=== PATIENT | male | born 1960 | race Caucasian/White ===

== ENCOUNTER 2016-08-27 13:29 | Emergency (ER) | payer OTHER ==
[~2016-08-27] VITALS: Ht 177.8 cm; Wt 77.0 kg
[~2016-08-27 13:29] MED LIST: BACT800T5 PO; BENZ1TAB PO; BUPR-175 PO; BUPR-86 PO; CEPH500T PO; DOXE100C4 PO; HALO100P IM; LURA1TAB PO; TAMS0.4C67 PO
[2016-08-27 13:31] VITALS: BP 132/93; PULSE 85; TEMP 97.8; O2SAT 100
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
[2016-08-27] MEDS ORDERED: traMADol HCL 50 MG TAB PO ONE (14:30)
[2016-08-27] MEDS ORDERED: TRAM50TA PO (14:37)
== END 2016-08-27 14:55 | disposition home or self-care (01) ==
LOC: NEPK 13:29
DX: S02.642A Fracture of ramus of left mandible, initial encounter for closed fracture (principal); Y04.2XXA Assault by strike against or bumped into by another person, initial encounter; Y93.55 Activity, bike riding; B19.20 Unspecified viral hepatitis C without hepatic coma; Z72.0 Tobacco use
CPT/HCPCS: 70486

== ENCOUNTER 2017-01-05 10:31 | Emergency (ER) | payer OTHER, MEDICAID ==
[~2017-01-05] VITALS: Ht 177.8 cm; Wt 77.0 kg
[~2017-01-05 10:31] MED LIST changes: -BACT800T5 PO; -BENZ1TAB PO; -BUPR-175 PO; -BUPR-86 PO; -CEPH500T PO; -DOXE100C4 PO; -HALO100P IM; -LURA1TAB PO; -TAMS0.4C67 PO; +TRAM50TA PO
[2017-01-05 10:32] VITALS: BP 136/81; PULSE 85; RESP 18; TEMP 98.3; O2SAT 100
[2017-01-05] MEDS ORDERED: BACT800T5 PO (10:48)
[2017-01-05] MEDS ORDERED: CEPH-460 PO (10:48)
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
== END 2017-01-05 11:13 | disposition home or self-care (01) ==
LOC: NEPK 10:31
DX: L02.413 Cutaneous abscess of right upper limb (principal); B95.62 Methicillin resistant Staphylococcus aureus infection as the cause of diseases classified elsewhere
CPT/HCPCS: 10060; 86403; 87070; 87186

== ENCOUNTER 2017-01-09 20:39 | Emergency (ER) | payer OTHER ==
[~2017-01-09] VITALS: Ht 177.8 cm; Wt 85.0 kg
[~2017-01-09 20:39] MED LIST changes: +BACT800T5 PO; +CEPH-460 PO
[2017-01-09] MEDS ORDERED: SODIUM CHLORIDE 0.9% FLUSH 10 ML FLUSH IV FLUSH PRN (21:00)
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
[2017-01-09 21:29] VITALS: BP 148/70; PULSE 84; RESP 16; TEMP 98.2; O2SAT 100
[2017-01-09 21:33] VITALS: O2SAT 100
--- NOTE | 2017-01-09 21:49 | RADRPT ---
EXAM DATE/TIME: 01/09/2017 21:13 [facility] COMPARISON: CT BRAIN W/O CONTRAST, December 16, 2014, 15:49. INDICATIONS : Trauma, fall. RADIATION DOSE: 36.39 CTDIvol (mGy) MEDICAL HISTORY : Hepatitis C. SURGICAL HISTORY : None. ENCOUNTER: Initial ACUITY: 1 day PAIN SCALE: 7/10 LOCATION: cranial TECHNIQUE: Multiple contiguous axial images were obtained of the head. Using automated exposure control and adj ustment of the mA and/or kV according to patient size, radiation dose was kept as low as reasonably a chievable to obtain optimal diagnostic quality images. DICOM format image data is available electro nically for review and comparison. FINDINGS: CEREBRUM: The ventricles are normal for age. No evidence of midline shift, mass lesion, hemorrhage or acute in farction. No extra-axial fluid collections are seen. POSTERIOR FOSSA: The cerebellum and brainstem are intact. The 4th ventricle is midline. The cerebellopontine angle i s unremarkable. EXTRACRANIAL: The visualized portion of the orbits is intact. Soft tissue swelling adjacent to the anterior right zygoma, lateral orbital wall, measuring up to 11 mm in thickness. SKULL: The calvaria is intact. No evidence of skull fracture. CONCLUSION: No acute findings in the brain. Kameron Guillory MD on January 09, 2017 at 21:46 Board Certified Radiologist. This report was verified electronically.
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
--- NOTE | 2017-01-09 22:08 | RADRPT ---
EXAM DATE/TIME: 01/09/2017 21:02 [facility] COMPARISON: CHEST SINGLE AP, December 16, 2014, 15:26. INDICATIONS : Shortness of breath. MEDICAL HISTORY : Hepatitis C. Seizures SURGICAL HISTORY : None. ENCOUNTER: Initial ACUITY: 1 day PAIN SCORE: 0/10 LOCATION: Bilateral chest FINDINGS: A single view of the chest demonstrates the lungs to be symmetrically aerated without evidence of mas s, infiltrate or effusion. The cardiomediastinal contours are unremarkable. Osseous structures are intact. CONCLUSION: The lungs are clear. Kameron Guillory MD on January 09, 2017 at 22:06 Board Certified Radiologist. This report was verified electronically.
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
[2017-01-10 03:00] VITALS: BP 131/72; PULSE 89; RESP 16; O2SAT 97
== END 2017-01-10 06:19 | disposition home or self-care (01) ==
LOC: NEPE 20:39
DX: S09.90XA Unspecified injury of head, initial encounter (principal); S01.81XA Laceration without foreign body of other part of head, initial encounter; R05 Cough; F10.920 Alcohol use, unspecified with intoxication, uncomplicated; E78.00 Pure hypercholesterolemia, unspecified; W01.198A Fall on same level from slipping, tripping and stumbling with subsequent striking against other object, initial encounter; Y93.01 Activity, walking, marching and hiking; Y92.59 Other trade areas as the place of occurrence of the external cause; Z72.0 Tobacco use
CPT/HCPCS: 70450; 70486; 71010; 72125; 99285

== ENCOUNTER 2017-02-18 08:28 | Emergency (ER) | payer OTHER ==
[~2017-02-18] VITALS: Ht 177.8 cm; Wt 78.0 kg
[2017-02-18 08:29] VITALS: BP 136/87; PULSE 99; RESP 13; TEMP 98.8; O2SAT 100
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
[2017-02-18] MEDS ORDERED: BACT800T5 PO (08:53)
[2017-02-18] MEDS ORDERED: MUPI2%T TOPICAL (08:54)
== END 2017-02-18 09:15 | disposition home or self-care (01) ==
LOC: NEPK 08:28
DX: S60.417A Abrasion of left little finger, initial encounter (principal); M19.90 Unspecified osteoarthritis, unspecified site; F31.9 Bipolar disorder, unspecified; E78.00 Pure hypercholesterolemia, unspecified; F20.9 Schizophrenia, unspecified; F17.200 Nicotine dependence, unspecified, uncomplicated; V18.4XXA Pedal cycle driver injured in noncollision transport accident in traffic accident, initial encounter; Z86.19 Personal history of other infectious and parasitic diseases; Z87.442 Personal history of urinary calculi
CPT/HCPCS: 99284

== ENCOUNTER 2017-07-01 09:01 | Emergency (ER) | payer OTHER ==
[~2017-07-01] VITALS: Ht 177.8 cm; Wt 75.0 kg
[~2017-07-01 09:01] MED LIST changes: -CEPH-460 PO; +MUPI2%T TOPICAL; -TRAM50TA PO
[2017-07-01 09:04] VITALS: BP 125/81; PULSE 110; RESP 20; TEMP 98.1; O2SAT 100
[2017-07-01] MEDS ORDERED: SODIUM CHLOR 0.9% 1000 ML INJ 1,000 ML IV ONE (10:15)
[2017-07-01] MEDS ORDERED: LEVOFLOXACIN 750 MG TAB PO ONE (10:15)
[2017-07-01] MEDS ORDERED: SODIUM CHLORIDE 0.9% FLUSH 10 ML FLUSH IVF PRN (10:15)
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
--- NOTE | 2017-07-01 10:39 | RADRPT ---
EXAM DATE/TIME: 07/01/2017 10:29 [facility] COMPARISON: No previous studies available for comparison. INDICATIONS : Cough. MEDICAL HISTORY : Seizures. Hepatitis C SURGICAL HISTORY : None. ENCOUNTER: Initial ACUITY: 3 days PAIN SCORE: 7/10 LOCATION: Bilateral chest FINDINGS: PA and lateral views of the chest demonstrate the lungs to be symmetrically aerated without evidence of mass, infiltrate or effusion. The cardiomediastinal contours are unremarkable. Osseous structure s are intact. CONCLUSION: No acute disease. Andre Pollack MD FACR on July 01, 2017 at 10:36 Board Certified Radiologist. This report was verified electronically.
[2017-07-01] MEDS: RESP: ALBUTEROL 2.5 MG/IPRATROPIUM 0.5 MG NEB (SCH) INH ×2 (10:48→10:49)
[2017-07-01 10:53] VITALS: BP 149/84; PULSE 87; RESP 20; O2SAT 100
[2017-07-01 10:54] VITALS: BP 149/84; PULSE 87; RESP 20; O2SAT 100
[2017-07-01 11:01] LABS: AUTOMATED NEUTROPHIL # 6.1 TH/MM3 (1.8-7.7); BASOPHIL % 0.5 % (0.0-2.0); HEMATOCRIT 46.5 % (39.0-51.0); HEMOGLOBIN 15.6 GM/DL (13.0-17.0); LYMPH % 8.7 % (9.0-44.0); LYMPHOCYTE # 0.6 TH/MM3 (1.0-4.8); MEAN CELL VOLUME 85.8 FL (80.0-100.0); MEAN CORPUSCULAR HEMOGLOBIN 28.8 PG (27.0-34.0); MEAN CORPUSCULAR HGB CONC 33.6 % (32.0-36.0); MEAN PLATELET VOLUME 8.5 FL (7.0-11.0); MONO % 6.5 % (0.0-8.0); MONOCYTE # 0.5 TH/MM3 (0-0.9); NEUT % 84.3 % (16.0-70.0); PLATELET COUNT 103 TH/MM3 (150-450); RED BLOOD COUNT 5.41 MIL/MM3 (4.50-5.90); RED CELL DISTRIBUTION WIDTH 14.8 % (11.6-17.2); WHITE BLOOD COUNT 7.2 TH/MM3 (4.0-11.0)
[2017-07-01] MEDS ORDERED: predniSONE 20 MG TAB PO ONE (11:15)
[2017-07-01] MEDS ORDERED: MUPI2%T TOPICAL (11:17)
[2017-07-01] MEDS ORDERED: BACT800T5 PO (11:17)
[2017-07-01] MEDS ORDERED: PRED20 PO (11:17)
[2017-07-01] MEDS ORDERED: VENTAER INH (11:17)
[2017-07-01 11:19] LABS: ALT (GPT) 74 U/L (12-78); AST (GOT) 113 U/L (15-37); BICARBONATE 22.6 MEQ/L (21.0-32.0); BLOOD UREA NITROGEN 15 MG/DL (7-18); CALCIUM 9.2 MG/DL (8.5-10.1); CHLORIDE 99 MEQ/L (98-107); GLOMERULAR FILTRATION RATE 86 ML/MIN (>89); GLUCOSE,RANDOM 98 MG/DL (74-106); SODIUM (NA) 132 MEQ/L (136-145)
[2017-07-01 11:22] LABS: ALKALINE PHOSPHATASE 128 U/L (45-117); TOTAL BILIRUBIN ADULT 0.4 MG/DL (0.2-1.0); TOTAL PROTEIN 8.4 GM/DL (6.4-8.2)
[2017-07-01 12:14] VITALS: BP 128/65
== END 2017-07-01 12:15 | disposition home or self-care (01) ==
LOC: NEPD 09:01
DX: J44.0 Chronic obstructive pulmonary disease with (acute) lower respiratory infection (principal); J44.1 Chronic obstructive pulmonary disease with (acute) exacerbation; L03.90 Cellulitis, unspecified; B95.62 Methicillin resistant Staphylococcus aureus infection as the cause of diseases classified elsewhere; B19.20 Unspecified viral hepatitis C without hepatic coma; E78.00 Pure hypercholesterolemia, unspecified; F20.9 Schizophrenia, unspecified; F17.200 Nicotine dependence, unspecified, uncomplicated; Z59.0 Homelessness
CPT/HCPCS: 71046; 80053; 83605; 85025; 87040; 94640; 94664; 96360; 99284; J7030; J7512

== ENCOUNTER 2017-08-12 17:25 | Emergency (ER) | payer OTHER ==
[~2017-08-12] VITALS: Ht 177.8 cm; Wt 78.0 kg
[~2017-08-12 17:25] MED LIST changes: +PRED20 PO; +VENTAER INH
[2017-08-12 17:35] VITALS: BP 138/83; PULSE 82; RESP 20; O2SAT 96
[2017-08-12 17:49] VITALS: BP 129/74; PULSE 75; RESP 22; O2SAT 95
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
[2017-08-12 18:18] LABS: AUTOMATED NEUTROPHIL # 2.5 TH/MM3 (1.8-7.7); BASOPHIL % 0.9 % (0.0-2.0); EOSINOPHIL % 0.3 % (0.0-4.0); HEMATOCRIT 37.7 % (39.0-51.0); HEMOGLOBIN 12.5 GM/DL (13.0-17.0); LYMPH % 27.4 % (9.0-44.0); LYMPHOCYTE # 1.1 TH/MM3 (1.0-4.8); MEAN CELL VOLUME 85.9 FL (80.0-100.0); MEAN CORPUSCULAR HEMOGLOBIN 28.6 PG (27.0-34.0); MEAN CORPUSCULAR HGB CONC 33.3 % (32.0-36.0); MEAN PLATELET VOLUME 7.9 FL (7.0-11.0); MONOCYTE # 0.3 TH/MM3 (0-0.9); NEUT % 64.4 % (16.0-70.0); PLATELET COUNT 127 TH/MM3 (150-450); RED BLOOD COUNT 4.39 MIL/MM3 (4.50-5.90); RED CELL DISTRIBUTION WIDTH 14.5 % (11.6-17.2); WHITE BLOOD COUNT 3.9 TH/MM3 (4.0-11.0)
[2017-08-12 18:27] LABS: ALBUMIN 3.1 GM/DL (3.4-5.0); AST (GOT) 214 U/L (15-37); BICARBONATE 19.6 MEQ/L (21.0-32.0); BLOOD UREA NITROGEN 7 MG/DL (7-18); CALCIUM 7.7 MG/DL (8.5-10.1); CHLORIDE 99 MEQ/L (98-107); CREATININE 0.67 MG/DL (0.60-1.30); GLOMERULAR FILTRATION RATE 121 ML/MIN (>89); GLUCOSE,RANDOM 120 MG/DL (74-106); SODIUM (NA) 133 MEQ/L (136-145)
[2017-08-12 18:29] LABS: ALKALINE PHOSPHATASE 96 U/L (45-117); ALT (GPT) 145 U/L (12-78); TOTAL BILIRUBIN ADULT 0.5 MG/DL (0.2-1.0); TOTAL PROTEIN 7.4 GM/DL (6.4-8.2)
[2017-08-12 18:34] LABS: ACETAMINOPHEN LESS THAN 2.0 MCG/ML (10.0-30.0)
[2017-08-12] MEDS ORDERED: POTASSIUM CHLORIDE 10 MEQ CONTROLLED RELEASE TAB PO ONE (19:00)
[2017-08-12 20:30] VITALS: BP 130/72; PULSE 78; RESP 20; O2SAT 97
--- NOTE | 2017-08-12 21:36 | PD ---
Data Data Last Documented VS Vital Signs Date Time Temp Pulse Resp B/P (MAP) Pulse Ox O2 Delivery O2 Flow Rate FiO2 08/12/17 20:30 78 20 130/72 (91) 97 Room Air Orders Orders Complete Blood Count With Diff (08/12/17 17:39) Comprehensive Metabolic Panel (08/12/17 17:39) Oximetry (08/12/17 17:39) Iv Access Insert/Monitor (08/12/17 17:39) Ecg Monitoring (08/12/17 17:39) Psych Screen (08/12/17 17:39) Drug Screen, Random Urine (08/12/17 17:39) Alcohol (Ethanol) (08/12/17 17:39) Salicylates (Aspirin) (08/12/17 17:39) Tylenol (Acetaminophen) (08/12/17 17:39) Potassium Chloride (Kcl) (08/12/17 19:00) Labs Laboratory Tests Test 08/12/17 17:47 White Blood Count 3.9 TH/MM3 Red Blood Count 4.39 MIL/MM3 Hemoglobin 12.5 GM/DL Hematocrit 37.7 % Mean Corpuscular Volume 85.9 FL Mean Corpuscular Hemoglobin 28.6 PG Mean Corpuscular Hemoglobin Concent 33.3 % Red Cell Distribution Width 14.5 % Platelet Count 127 TH/MM3 Mean Platelet Volume 7.9 FL Neutrophils (%) (Auto) 64.4 % Lymphocytes (%) (Auto) 27.4 % Monocytes (%) (Auto) 7.0 % Eosinophils (%) (Auto) 0.3 % Basophils (%) (Auto) 0.9 % Neutrophils # (Auto) 2.5 TH/MM3 Lymphocytes # (Auto) 1.1 TH/MM3 Monocytes # (Auto) 0.3 TH/MM3 Eosinophils # (Auto) 0.0 TH/MM3 Basophils # (Auto) 0.0 TH/MM3 CBC Comment DIFF FINAL Differential Comment Blood Urea Nitrogen 7 MG/DL Creatinine 0.67 MG/DL Random Glucose 120 MG/DL Total Protein 7.4 GM/DL Albumin 3.1 GM/DL Calcium Level 7.7 MG/DL Alkaline Phosphatase 96 U/L Aspartate Amino Transf (AST/SGOT) 214 U/L Alanine Aminotransferase (ALT/SGPT) 145 U/L Total Bilirubin 0.5 MG/DL Sodium Level 133 MEQ/L Potassium Level 3.2 MEQ/L Chloride Level 99 MEQ/L Carbon Dioxide Level 19.6 MEQ/L Anion Gap 14 MEQ/L Estimat Glomerular Filtration Rate 121 ML/MIN Salicylates Level 4.4 MG/DL Acetaminophen Level LESS THAN 2.0 MCG/ML Ethyl Alcohol Level 173 MG/DL MDM Supervised Visit with JALIL: Yes Narrative Course 57-year-old man with unintentional drug overdose, received Narcan, seen by Dr. Pratt, sign out to me to monitor. Patient's been monitored for 4 hours in the ED. He will follow-up with outpatient psychiatry. Advised to stop using illicit drugs. Diagnosis Primary Impression: Accidental drug overdose Qualified Codes: T50.901A - Poisoning by unspecified drugs, medicaments and biological substances, accidental (unintentional), initial encounter Referrals: [facility] Instructions: General Instructions Additional Instruction: STOP USING DRUGS Follow-up with Gaurang Hutchins for substance abuse treatment. Med/Other Pt SpecificInfo: No Change to Meds Scripts No Active Prescriptions or Reported Meds Disposition: 01 DISCHARGE HOME Condition: Stable Hoang Arevalo MD August 12, 2017 21:36
[2017-08-12 21:40] VITALS: BP 112/76
== END 2017-08-12 22:35 | disposition home or self-care (01) ==
LOC: NEPE 17:25
DX: T40.5X1A Poisoning by cocaine, accidental (unintentional), initial encounter (principal); F31.9 Bipolar disorder, unspecified; F20.9 Schizophrenia, unspecified; R06.81 Apnea, not elsewhere classified; M19.90 Unspecified osteoarthritis, unspecified site; F41.9 Anxiety disorder, unspecified; E78.00 Pure hypercholesterolemia, unspecified; Z87.442 Personal history of urinary calculi; Z79.899 Other long term (current) drug therapy
CPT/HCPCS: 80053; 80307; 85025; 99283